=== PATIENT | male | born 1970 | race African-American/Black ===

== ENCOUNTER 2017-11-01 23:24 | Emergency (ER) | payer OTHER ==
[~2017-11-01] VITALS: Ht 180.3 cm; Wt 88.5 kg
[~2017-11-01 23:24] MED LIST: NAPROSYN500 MG PO; PEPCID40 MG PO; PRILOSEC20 MG PO; SEROQUEL100 MG PO
[2017-11-01 23:29] VITALS: Ht 180.3 cm; Wt 88.5 kg
[2017-11-02 00:45] LABS: CALCIUM 8.2 mg/dL (8.5-10.1); CARBON DIOXIDE 22.6 mmol/L (21-32); CHLORIDE SERUM 106 mmol/L (98-107); CREATININE SERUM 1.1 mg/dL (0.7-1.3); GFR1 > 60 mL/min; GLUCOSE SERUM 166 mg/dL (74-106); POTASSIUM SERUM 3.4 mmol/L (3.5-5.1); SODIUM SERUM 143 mmol/L (136-145)
[2017-11-02 00:46] LABS: ALBUMIN 3.4 g/dL (3.4-5.0); ALKALINE PHOSPHATASE 92 U/L (46-116); ALT/SGPT 33 U/L (16-63); AST/SGOT 32 U/L (15-37); BILIRUBIN TOTAL 0.3 mg/dL (0.20-1.00); LIPASE 97 IU/L (73-393); TOTAL PROTEIN, SERUM 7.1 g/dL (6.4-8.2)
[2017-11-02 01:53] VITALS: BP 126/91
== END 2017-11-02 01:53 | disposition home or self-care (01) ==
LOC: ED 23:24
PROVIDERS: Emergency Medicine
DX: R10.13 Epigastric pain (principal); F20.0 Paranoid schizophrenia; F31.9 Bipolar disorder, unspecified; Z88.6 Allergy status to analgesic agent

== ENCOUNTER 2018-06-10 12:35 | Emergency (ER) | payer OTHER ==
[~2018-06-10] VITALS: Ht 188 cm; Wt 88.5 kg
[2018-06-10 12:44] VITALS: Ht 188 cm; Wt 88.5 kg
[2018-06-10 13:08] LABS: BASOPHIL % 1.2 % (0-2); PLATELET COUNT 150 x10^3mcL (130-400); RED CELL DISTRIBUTION WIDTH 13.9 % (11.5-14.5)
[2018-06-10 13:17] LABS: CALCIUM 8.9 mg/dL (8.5-10.1); CARBON DIOXIDE 28.8 mmol/L (21-32); CHLORIDE SERUM 101 mmol/L (98-107); CREATININE SERUM 1.1 mg/dL (0.7-1.3); GFR1 > 60 mL/min; GLUCOSE SERUM 94 mg/dL (74-106); POTASSIUM SERUM 3.8 mmol/L (3.5-5.1); SODIUM SERUM 136 mmol/L (136-145)
[2018-06-10 13:22] LABS: ALBUMIN 3.8 g/dL (3.4-5.0); ALKALINE PHOSPHATASE 88 U/L (46-116); ALT/SGPT 37 U/L (16-63); AST/SGOT 30 U/L (15-37)
[2018-06-10 13:41] LABS: microscopic required? NO
[2018-06-10 13:48] LABS: UA SPECIFIC GRAVITY 1.025 (1.005-1.035); urine erythrocyte NEGATIVE (NEGATIVE)
[2018-06-10 13:56] LABS: AMPHETAMINE QUAL UR NONE DETECTED (See below)
[2018-06-11 15:45] VITALS: BP 135/84
== END 2018-06-10 15:38 ==
LOC: ED 12:35
PROVIDERS: Emergency Medicine
DX: F32.9 Major depressive disorder, single episode, unspecified (principal); F20.9 Schizophrenia, unspecified; F12.959 Cannabis use, unspecified with psychotic disorder, unspecified; S80.212A Abrasion, left knee, initial encounter; F17.210 Nicotine dependence, cigarettes, uncomplicated; Z88.6 Allergy status to analgesic agent; Z98.890 Other specified postprocedural states; W18.39XA Other fall on same level, initial encounter; Y93.89 Activity, other specified; Y92.89 Other specified places as the place of occurrence of the external cause; Y99.8 Other external cause status
CPT/HCPCS: 36415; 36600; G0480

== ENCOUNTER 2019-07-27 04:38 | Emergency (ER) | payer OTHER ==
[~2019-07-27] VITALS: Ht 182.9 cm; Wt 88.5 kg
[2019-07-27 06:58] LABS: PLATELET COUNT 167 x10^3mcL (130-400)
[2019-07-27 07:00] LABS: RED CELL DISTRIBUTION WIDTH 15.3 % (11.5-14.5)
[2019-07-27 08:29] LABS: BAND NEUTROPHIL 0 % (0-10); BASOPHIL 0 % (0-2); MONOCYTE 10 % (0-7); SEGMENTED NEUTROPHILS 69 % (37-75)
[2019-07-27 08:30] LABS: PLATELET MORPHOLOGY PLATELETS DECREASED; rbc morphology (normal/abnorm) ABNORMAL (NORMAL)
[2019-07-27 09:09] LABS: ALBUMIN 3.6 g/dL (3.4-5.0); ALKALINE PHOSPHATASE 91 U/L (46-116); ALT/SGPT 30 U/L (16-63); AST/SGOT 25 U/L (15-37); BILIRUBIN TOTAL 0.29 mg/dL (0.20-1.00); CALCIUM 8.4 mg/dL (8.5-10.1); CARBON DIOXIDE 24.2 mmol/L (21-32); CHLORIDE SERUM 102 mmol/L (98-107); CREATININE SERUM 1.2 mg/dL (0.7-1.3); GFR1 > 60 mL/min; GLUCOSE SERUM 102 mg/dL (74-106); POTASSIUM SERUM 3.5 mmol/L (3.5-5.1); SODIUM SERUM 140 mmol/L (136-145); TOTAL PROTEIN, SERUM 7.7 g/dL (6.4-8.2)
[2019-07-27 09:45] LABS: AMPHETAMINE QUAL UR POSITIVE (See below)
[2019-07-27 10:33] VITALS: BP 112/69
== END 2019-07-27 10:33 | disposition left against medical advice (07) ==
LOC: ED 04:38
PROVIDERS: Emergency Medicine
DX: F10.129 Alcohol abuse with intoxication, unspecified (principal); R44.0 Auditory hallucinations; F41.9 Anxiety disorder, unspecified; F32.9 Major depressive disorder, single episode, unspecified; Z88.6 Allergy status to analgesic agent; Z88.8 Allergy status to other drugs, medicaments and biological substances
CPT/HCPCS: 36415; G0480; Q0092

== ENCOUNTER 2019-10-15 22:55 | Emergency (ER) | payer OTHER ==
[~2019-10-15] VITALS: Ht 182.9 cm; Wt 95.3 kg
[2019-10-15 23:07] VITALS: Ht 182.9 cm; Wt 95.3 kg
[2019-10-16 01:55] LABS: CALCIUM 8.1 mg/dL (8.5-10.1); CHLORIDE SERUM 108 mmol/L (98-107); GFR1 > 60 mL/min; GLUCOSE SERUM 125 mg/dL (74-106); POTASSIUM SERUM 3.4 mmol/L (3.5-5.1); SODIUM SERUM 143 mmol/L (136-145)
[2019-10-16 02:00] LABS: ALBUMIN 3.4 g/dL (3.4-5.0); ALKALINE PHOSPHATASE 86 U/L (46-116); ALT/SGPT 28 U/L (16-63); AST/SGOT 17 U/L (15-37); BILIRUBIN TOTAL 0.1 mg/dL (0.20-1.00); TOTAL PROTEIN, SERUM 7.2 g/dL (6.4-8.2)
[2019-10-16 06:57] VITALS: BP 110/81
[2019-10-16 07:39] LABS: AMPHETAMINE QUAL UR NONE DETECTED (See below)
== END 2019-10-16 06:57 | disposition home or self-care (01) ==
LOC: ED 22:55
PROVIDERS: Emergency Medicine
DX: F20.9 Schizophrenia, unspecified (principal); Z98.890 Other specified postprocedural states; Z88.6 Allergy status to analgesic agent; Z88.8 Allergy status to other drugs, medicaments and biological substances
CPT/HCPCS: 36415; G0480